=== PATIENT | male | born 1955 | race Two or more races ===

== ENCOUNTER 2024-07-15 06:06 | Day surgery (SDC) | payer BC, MEDICARE ==
[2024-07-15] MEDS: Lactated Ringers 1,000 ML IV SCH (07:17)
[2024-07-15] MEDS ORDERED: Propofol 200 MG/20 ML SDV ONE (07:25)
[2024-07-15] MEDS ORDERED: Midazolam 1 MG/ML 2 ML SDV ONE (07:25)
[2024-07-15] MEDS ORDERED: fentaNYL 50 MCG/ML SDV ONE (07:25)
[2024-07-15 09:53] VITALS: BP 145/93; PULSE 16
== END 2024-07-15 09:55 | disposition home or self-care (01) ==
LOC: JP.SDS 06:06
PROVIDERS: ATTEND Surgery
DX: Z12.11 Encounter for screening for malignant neoplasm of colon (principal); I10 Essential (primary) hypertension
CPT/HCPCS: 00812-QZ; J2250; J2704; J3010; J7120